=== PATIENT | female | born 1995 | race American Indian/Alaskan Native ===

== ENCOUNTER 2018-06-19 19:54 | Inpatient (IN) | payer MEDICAID, OTHER ==
[2018-06-19] MEDS ORDERED: SUBLIMAZE IV ONE (22:13)
[2018-06-19] MEDS ORDERED: STADOL IV PRN (22:14)
[2018-06-19] MEDS ORDERED: CERVIDIL VG ONE (22:14)
[2018-06-19] MEDS ORDERED: AMBIEN PO PRN (22:15)
[2018-06-19 22:22] LABS: Hemoglobin 12.2 gm/dl (10.1-14.3); Mean Corpuscular HGB Conc 34 % (30-34); Mean Corpuscular Volume 87 fl (79-97); Platelet Count 292 K/mm3 (140-440); Red Blood Count 4.12 M/mm3 (3.65-5.03); Red Cell Distribution Width 13.6 % (13.2-15.2)
[2018-06-19 22:46] LABS: Alanine Aminotransferase 11 units/L (7-56)
[2018-06-19 22:59] LABS: Uric Acid 5.8 mg/dL (3.5-7.6)
[2018-06-19] MEDS ORDERED: LACTATED RINGERS 1,000 ML IV SCH (23:00)
[2018-06-20 00:54] LABS: Bacteria,Urine 2+ /HPF (Negative); Bilirubin,Urine NEG (Negative); Blood,Urine NEG (Negative); Color,Urine Straw (Yellow); Hyaline Casts,Urine 3 /LPF; Urobilinogen,Urine < 2.0 mg/dL (<2.0)
[2018-06-20] MEDS ORDERED: AMPICILLIN/NS 2 GM/100 ML 2 GM/100 ML BAG IV ONE (06:15)
--- NOTE | 2018-06-20 07:55 | History and Physical Report ---
History of Present Illness Date of examination: 06/20/18 Date of admission: 06/19/18 19:54 Chief complaint: IOL for preeclampsia History of present illness: This is a 22 yo EDC 07/10/18 here for IOL fro [facility]. She is a transfer to [facility] at 31 weeks. She had an abnormal 1hr. Patient has a sickle cell trait. FOB unknown. Treated during this for UTI. Past History Past Medical History: no pertinent history Past Surgical History: no surgical history Family/Genetic History: none Social history: no significant social history, single. denies: smoking, alcohol abuse, prescription drug abuse - Obstetrical History Expected Date of Delivery: 07/10/18 Actual Gestation: 37 Week(s) 1 Day(s) : 1 Para: 0 Hx # Term Pregnancies: 0 Number of Pregnancies: 0 Spontaneous Abortions: 0 Induced : 0 Number of Living Children: 0 Medications and Allergies Allergies Allergy/AdvReac Type Severity Reaction Status Date / Time No Known Allergies Allergy Verified 06/05/18 16:51 Home Medications Medication Instructions Recorded Confirmed Last Taken Type Pnv No.95/Ferrous Fum/Folic AC 1 tab PO QDAY 05/12/18 06/19/18 06/01/18 20:00 History [ Formula Tablet] Active Meds: Active Medications Butorphanol Tartrate (Stadol) 2 mg IV Q2H PRN PRN Reason: Labor Pain Last Admin: 06/20/18 06:30 Dose: 2 mg Documented by: Lactated Ringer's (Lactated Ringers) 1,000 mls @ 125 mls/hr IV DIRECT ALIYA Zolpidem Tartrate (Ambien) 10 mg PO QHS PRN PRN Reason: Insomnia Last Admin: 06/20/18 01:50 Dose: 10 mg Documented by: Review of Systems All systems: negative - Vital Signs Vital signs: Vital Signs Pulse BP 98 H 196/127 06/19/18 21:20 06/19/18 21:20 Temp Pulse Resp BP Pulse Ox 97.1 F L 104 H 18 143/72 94 06/20/18 07:00 06/20/18 07:49 06/20/18 07:00 06/20/18 07:08 06/20/18 07:49 - Physical Exam Breasts: Positive: normal Cardiovascular: Regular rate, Normal S1 Lungs: Positive: Clear to auscultation, Normal air movement Abdomen: Positive: normal appearance, soft, normal bowel sounds. Negative: distention, tenderness, guarding Genitourinary (Female): Positive: normal external genitalia, normal perenium Vulva: both: normal Vagina: Positive: normal moisture Uterus: Positive: normal size, normal contour Anus/Rectum: Positive: normal perianal skin Extremities: Positive: normal Deep Tendon Reflex Grade: Normal +2 - Obstetrical FHR: category 1 Cervical Dilatation: 0 Uterine Contraction Pattern: Irregular Uterine Tone Measurement Phase: Contraction Uterine Contraction Intensity: Mild Results Result Diagrams: 06/19/18 21:33 06/19/18 21:33 Abnormal lab results 06/19/18 06/19/18 Range/Units 21:33 21:33 WBC 13.8 H (4.5-11.0) K/mm3 Creatinine 0.6 L (0.7-1.2) mg/dL Lactate Dehydrogenase 282 H (91-180) units/L All other labs normal. Assessment and Plan A/P HD#1 IOL for preeclampsia admission, labs, PIH labs cervidil for unfavorable cervix discussed iol, implications and risks
[2018-06-20] MEDS ORDERED: PITOCin/NS 30 UNIT/500ML 30 UNITS/500 ML BAG IV SCH (08:00)
[2018-06-20] MEDS ORDERED: PITOCin/NS 20 UNIT/1000ML DRIP 20 UNITS/1,000 ML BAG IV SCH ×3 (08:00→13:00)
[2018-06-20] MEDS ORDERED: XYLOCAINE 2% INFILTRATI NR (08:00)
[2018-06-20] MEDS ORDERED: PHENERGAN PO PRN (08:30)
[2018-06-20] MEDS ORDERED: ZOFRAN IV PRN (08:30)
[2018-06-20] MEDS ORDERED: BRETHINE SUB-Q PRN (08:30)
[2018-06-20] MEDS ORDERED: NARCAN 0.4 MG/1 ML IV PRN ×2 (08:30→12:20)
[2018-06-20] MEDS ORDERED: BRETHINE IVP PRN (08:30)
[2018-06-20] MEDS: LACTATED RINGERS 1,000 ML IV SCH (10:50)
[2018-06-20] MEDS ORDERED: PEPCID IV ONE ×2 (10:55→11:01)
[2018-06-20] MEDS ORDERED: BICITRA PO ONE ×2 (10:55→11:01)
[2018-06-20] MEDS ORDERED: REGLAN IV ONE ×2 (10:55→11:01)
[2018-06-20] MEDS ORDERED: ZOFRAN ONE (10:58)
[2018-06-20] MEDS ORDERED: SUBLIMAZE ONE (10:58)
[2018-06-20] MEDS ORDERED: ASTRAMORPH PF 10MG/10ML ONE (10:59)
[2018-06-20] MEDS ORDERED: LACTATED RINGERS 1,000 ML IV SCH ×2 (11:00→12:00)
[2018-06-20] MEDS ORDERED: ANCEF/STERILE WATER 2 GM/20 ML 2 GM/20 ML SYRINGE IV NR (11:00)
--- NOTE | 2018-06-20 11:03 | Event Note ---
Date: 06/20/18 Patient was noted to be 2cm and srom. patient was noted to be breech. Will proceed with LSTCS
--- NOTE | 2018-06-20 11:12 | Anesthesia Consultation ---
Anesthesia Consult and Med Hx Date of service: 06/20/18 - Airway Anesthetic Teeth Evaluation: Good ROM Head & Neck: Adequate Mental/Hyoid Distance: Adequate Mallampati Class: Class I Intubation Access Assessment: Good - Pulmonary Exam CTA: Yes - Cardiac Exam Cardiac Exam: RRR - Pre-Operative Health Status ASA Pre-Surgery Classification: ASA2 Proposed Anesthetic Plan: Spinal - Pulmonary Hx Smoking: No Hx Asthma: No Hx Respiratory Symptoms: No SOB: No COPD: No Home Oxygen Therapy: No Hx Pneumonia: No Hx Sleep Apnea: No - Cardiovascular System Hx Hypertension: No Hx Coronary Artery Disease: No Hx Heart Attack/AMI: No Hx Angina: No Hx Percutaneous Transluminal Coronary Angioplasty (PTCA): No Hx Cardia Arrhythmia: No Hx Pacemaker: No Hx Internal Defibrillator: No Hx Valvular Heart Disease: No Hx Heart Murmur: No Hx Peripheral Vascular Disease: No - Central Nervous System Hx Neuromuscular Disorder: No Hx Seizures: No CVA: No Hx Back Pain: No Hx Psychiatric Problems: No - Gastrointestinal Hx Ulcer: No Hx Gastroesophageal Reflux Disease: No - Endocrine Hx Renal Disease: No Hx End Stage Renal Disease: No Hx Cirrhosis: No Hx Liver Disease: No Hx Insulin Dependent Diabetes: No Hx Non-Insulin Dependent Diabetes: No Hx Hypothyroidism: No Hx Hyperthyroidism: No - Hematic Hx Anemia: No Hx Sickle Cell Disease: No - Other Systems Hx Alcohol Use: No Hx Substance Use: No Hx Cancer: No Hx Obesity: No
--- NOTE | 2018-06-20 11:21 | Event Note ---
Date: 06/20/18 Patient was diagnosed with breech. I spoke with patient and family which include bleeding infection, damage to pelvic and non pelvic organs., risk of blood clots, risk of chronic pain, risk of hysterectomy and . Patient signed consents and will proceed with primary csec. All questions answered
[2018-06-20] MEDS ORDERED: ANCEF/STERILE WATER 2 GM/20 ML IV ONE (11:25)
[2018-06-20] MEDS ORDERED: NACL 0.9% IR ONE (11:45)
[2018-06-20] MEDS ORDERED: WATER FOR IRRIG STERILE IR ONE (11:45)
[2018-06-20] MEDS ORDERED: MYLICON PO PRN (12:20)
[2018-06-20] MEDS ORDERED: TYLENOL PO PRN (12:20)
[2018-06-20] MEDS ORDERED: SENOKOT PO PRN (12:20)
[2018-06-20] MEDS ORDERED: LANSINOH TP PRN (12:20)
[2018-06-20] MEDS ORDERED: ANUCORT-HC PR PRN (12:20)
[2018-06-20] MEDS ORDERED: MILK OF MAGNESIA PO PRN (12:20)
[2018-06-20] MEDS ORDERED: PERCOCET 5/325 PO PRN (12:20)
[2018-06-20] MEDS ORDERED: MORPHINE IV PRN ×2 (12:20)
[2018-06-20] MEDS ORDERED: IBUPROFEN PO PRN (12:20)
[2018-06-20] MEDS ORDERED: NORCO 5/325 PO PRN (12:20)
[2018-06-20] MEDS ORDERED: TUCKS PAD TP PRN (12:20)
[2018-06-20] MEDS ORDERED: PHENERGAN PR PRN (12:20)
[2018-06-20] MEDS ORDERED: TORADOL IV PRN (12:20)
--- NOTE | 2018-06-20 12:22 | Ultrasound Report ---
ULTRASOUND OB LIMITED History: Presentation Technique: Transabdominal ultrasound with Doppler interrogation. Gestation: Single Position: Breech Heart Rate: 155 BPM
[2018-06-20] MEDS ORDERED: MAGNESIUM SULFATE 4GM/100ML 4 GM/100 ML BAG IV ONE (12:24)
--- NOTE | 2018-06-20 12:29 | Procedure Note ---
OB Delivery Note - Delivery Date of Delivery: 06/20/18 Surgeon: IZABELA SANTOS Estimated blood loss: 500cc - Section Preop diagnosis: breech Postop diagnosis: same section procedure: section Disposition: PACU Complications: none Narrative: see op note - A at 1 minute: 8 at 5 minutes: 9 Gender: Female (4 pounds 15 oz)
--- NOTE | 2018-06-20 12:37 | Operative Report ---
Operative Report Operative Report: DATE OF OPERATION: 06/30/18 PREOPERATIVE DIAGNOSES: 1. Intrauterine gestation at 37 weeks 2. Breech 3. [place] POSTOPERATIVE DIAGNOSES: 1-3 [facility] OPERATION PERFORMED: Primary low transverse section. SURGEON: Chyna Carreno MD ANESTHESIA: Epidural. COMPLICATIONS: None. ESTIMATED BLOOD LOSS: 500 mL. DRAINS: Espinal catheter to the bladder. SPECIMENS TO PATHOLOGY: Cord blood for routine testing. OPERATIVE FINDINGS: A viable male infant with Apgars of 8 and 9 and birthweight of 4 pounds 15 ounces was delivered from a cephalic presentation.The cord contained 3 vessels. There was normal anterior fundal placenta. The amniotic fluid was clear. The uterus, fallopian tubes and ovaries were normal. DESCRIPTION OF OPERATION: The patient was brought to the operating suite in stable condition with epidural anesthesia on board and an indwelling catheter in place in the bladder. The patient was placed supine on the operating room table and rolled to her left side with a wedge. The abdomen was prepped and draped in standard fashion for section. After testing with forceps to assure an adequate anesthetic level, the surgery was commenced. We had counseled the patient extensively regarding the risks of the surgery including but not limited to stroke, embolus, phlebitis, pain, infection, hemorrhage, as well as injury to the infant and the internal organs such as the bowel, bladder, blood vessels, nerves, kidneys, ureters and pelvic organs. The patient was aware of the postoperative morbidity issues and recovery timeframes. The patient was aware she can form adhesions, which can result in obstruction of loop of bowel or ureter or chronic pain. She was aware that should she have hemorrhage and require blood transfusion, there was a small chance for exposure to hepatitis or HIV disease. With the scalpel, a Pfannenstiel skin incision was made. Dissection was carried down sharply through the subcutaneous tissues and fascia in a transverse plane with the scalpel, electrocautery and curved Thompson scissors. The fascia was sharply freed up superiorly and inferiorly from the underlying rectus muscles, which were bluntly and sharply divided. The peritoneum was entered carefully in a clear space with a curved hemostat. The peritoneal incision was then extended vertically with Metzenbaum scissors. A retractor and bladder blade were placed. A bladder flap was created by incising transversely through the peritoneum and vesicouterine fold and then bluntly dissecting the bladder distally. With the scalpel, a low transverse hysterotomy was commenced. The serosa and myometrium were scored with the scalpel. The uterine cavity was actually entered bluntly with a curved hemostat. The uterine incision was then extended laterally with the well reactivator operator's fingers. An intrauterine hand was placed and the head of the was brought up out of the pelvis into the uterine incision. With fundal pressure, he was delivered without difficulty. The nasopharynx and oropharynx were suctioned. The cord was doubly clamped and transected. The was then handed off to the nursery personnel. Apgars were good at 8 and 9. Further cord blood was collected for routine testing. The placenta was manually removed. The uterine cavity was then curetted with a dry sponge and freed of the remaining membranes. The edges of the uterine incision were grasped with Avendaño clamps. With the massage and the Pitocin, the uterus began to firm up normally. The uterine incision was then closed in 2 layers of 0 Vicryl sutures. The first suture was placed to the endometrium and myometrium. The second suture was placed through the endopelvic fascia and also reincorporated the bladder flap peritoneum. Peritoneal lavage was then performed. The pelvis and gutters were irrigated and suctioned and cleared of all blood and clots and amniotic fluid. The uterine incision was reinspected to assure hemostasis. The uterus, tubes and ovaries were inspected and were normal. Once we were satisfied with the hemostasis, attention was turned to closure of the abdominal incision. The peritoneum, muscles and fascia were closed in layers using 0-Vicryl sutures. The subcutaneous tissue was closed with 3-0 plain sutures. The skin was closed with a subcuticular suture of 4-0 Vicryl followed by benzoin, Steri-Strips and a Telfa dressing. The patient was moved to the recovery room in stable condition with the Espinal catheter draining clear urine. Instruments, sponge and needle counts were reported as correct. Estimated blood loss was 500 mL. There were no complications.
[2018-06-20] MEDS ORDERED: SODIUM CHLORIDE FLUSH SYRINGE 10 ML IV NR (13:00)
[2018-06-20] MEDS: MAGNESIUM SULFATE 40GM/1000ML 40 GM/1,000 ML BAG IV SCH (13:18)
[2018-06-20] MEDS ORDERED: BENADRYL IV PRN (16:07)
[2018-06-20] MEDS ORDERED: MINERAL OIL PO PRN (22:00)
[2018-06-21 00:32] LABS: Hemoglobin 10.7 gm/dl (10.1-14.3)
[2018-06-21] MEDS: LACTATED RINGERS 1,000 ML IV SCH (06:20)
[2018-06-21] MEDS ORDERED: NORMODYNE PO ONE ×2 (08:30→17:44)
[2018-06-21] MEDS: MAGNESIUM SULFATE 40GM/1000ML 40 GM/1,000 ML BAG IV SCH (09:26)
--- NOTE | 2018-06-21 13:22 | Progress Note ---
Assessment and Plan - Patient Problems (1) induced hypertension Current Visit: Yes Status: Acute Plan to address problem: patient doing well Subjective - Subjective Date of service: 06/21/18 Interval history: Patient is completing her magnesium therapy. She is without complaints. Remains normotensive. Patient reports: appetite normal, pain well controlled : doing well Objective - Vital Signs Latest vital signs: Vital Signs Temp Pulse Resp BP BP Pulse Ox 06/21/18 13:18 98 H 96 06/21/18 13:13 87 95 06/21/18 13:09 87 94 06/21/18 13:08 87 95 06/21/18 13:03 103 H 96 06/21/18 12:59 104 H 93 06/21/18 12:58 101 H 96 06/21/18 12:57 96 H 117/67 06/21/18 12:53 100 H 92 06/21/18 12:48 85 95 06/21/18 12:43 86 96 06/21/18 12:38 85 96 06/21/18 12:33 82 96 06/21/18 12:28 83 96 06/21/18 12:27 81 113/66 93 06/21/18 12:23 86 95 06/21/18 12:18 83 96 06/21/18 12:13 86 96 06/21/18 12:08 84 96 06/21/18 12:03 87 96 06/21/18 11:58 84 96 06/21/18 11:57 84 112/65 93 06/21/18 11:53 83 95 06/21/18 11:48 88 96 06/21/18 11:43 87 95 06/21/18 11:38 98 H 96 06/21/18 11:34 83 94 06/21/18 11:33 84 95 06/21/18 11:28 85 95 06/21/18 11:27 90 113/67 92 06/21/18 11:23 85 95 06/21/18 11:21 87 94 06/21/18 11:18 85 95 06/21/18 11:14 89 94 06/21/18 11:13 87 95 06/21/18 11:08 87 95 06/21/18 11:03 90 96 06/21/18 10:58 95 H 96 06/21/18 10:57 90 118/74 93 06/21/18 10:53 101 H 96 06/21/18 10:48 95 H 96 06/21/18 10:44 85 94 06/21/18 10:43 84 94 06/21/18 10:39 85 94 06/21/18 10:38 83 95 06/21/18 10:33 85 95 06/21/18 10:28 84 95 06/21/18 10:27 85 116/69 93 06/21/18 10:23 82 95 06/21/18 10:18 85 95 06/21/18 10:14 86 94 06/21/18 10:13 88 95 06/21/18 10:09 93 H 94 06/21/18 10:08 95 H 96 06/21/18 10:03 93 H 96 06/21/18 09:58 94 H 97 06/21/18 09:57 93 H 131/79 06/21/18 09:53 98 H 97 06/21/18 09:48 92 H 96 06/21/18 09:43 95 H 96 06/21/18 09:38 92 H 96 06/21/18 09:33 92 H 97 06/21/18 09:28 99 H 96 06/21/18 09:27 85 143/90 06/21/18 09:25 95 H 94 06/21/18 09:23 95 H 95 06/21/18 09:18 99 H 95 06/21/18 09:13 83 97 06/21/18 09:08 84 98 06/21/18 09:03 75 95 06/21/18 08:58 85 96 06/21/18 08:57 85 132/88 93 06/21/18 08:53 95 H 96 06/21/18 08:48 96 H 95 06/21/18 08:43 81 95 06/21/18 08:38 97 H 95 06/21/18 08:34 78 94 06/21/18 08:33 81 95 06/21/18 08:28 95 H 95 06/21/18 08:27 90 128/90 93 06/21/18 08:23 95 H 96 06/21/18 08:22 91 H 94 06/21/18 08:18 92 H 96 06/21/18 08:17 95 H 141/95 06/21/18 08:16 95 H 94 06/21/18 08:13 90 95 06/21/18 08:09 86 94 06/21/18 08:08 87 95 06/21/18 08:03 93 H 95 06/21/18 08:02 84 94 06/21/18 07:58 93 H 95 06/21/18 07:57 102 H 141/95 06/21/18 07:55 91 H 94 06/21/18 07:53 83 95 06/21/18 07:49 88 94 06/21/18 07:48 86 95 06/21/18 07:43 91 H 94 06/21/18 07:42 92 H 94 06/21/18 07:38 92 H 95 06/21/18 07:33 107 H 95 06/21/18 07:28 95 H 96 06/21/18 07:27 89 167/103 06/21/18 07:26 87 93 06/21/18 07:23 78 96 06/21/18 07:18 81 97 06/21/18 07:13 83 96 06/21/18 07:08 84 97 06/21/18 07:03 94 H 97 06/21/18 07:01 86 94 06/21/18 06:58 80 96 06/21/18 06:57 91 H 167/91 06/21/18 06:53 87 96 06/21/18 06:48 91 H 97 06/21/18 06:43 89 97 06/21/18 06:38 95 H 97 06/21/18 06:33 89 96 06/21/18 06:28 107 H 97 06/21/18 06:27 91 H 163/93 94 06/21/18 06:23 95 H 96 06/21/18 06:18 99 H 97 06/21/18 06:13 99 H 99 06/21/18 06:08 90 97 06/21/18 06:03 90 97 06/21/18 05:58 90 96 06/21/18 05:57 86 146/91 93 06/21/18 05:53 83 95 06/21/18 05:48 90 96 06/21/18 05:43 95 H 96 06/21/18 05:39 96 H 94 06/21/18 05:38 99 H 94 06/21/18 05:33 85 97 06/21/18 05:28 94 H 96 06/21/18 05:27 98 H 158/88 92 06/21/18 05:23 83 96 06/21/18 05:18 76 96 06/21/18 05:13 81 97 06/21/18 05:08 79 96 06/21/18 05:03 83 96 06/21/18 04:58 107 H 97 06/21/18 04:57 91 H 164/86 94 06/21/18 04:53 85 96 06/21/18 04:48 86 96 06/21/18 04:43 94 H 97 06/21/18 04:38 98 H 97 06/21/18 04:33 101 H 97 06/21/18 04:30 97.8 F 18 06/21/18 04:28 99 H 97 06/21/18 04:27 98.0 F 88 18 163/92 94 06/21/18 04:23 87 97 06/21/18 04:18 100 H 97 06/21/18 04:13 86 96 06/21/18 04:12 86 94 06/21/18 04:08 85 97 06/21/18 04:03 97 H 97 06/21/18 03:58 90 97 06/21/18 03:57 96 H 154/105 91 06/21/18 03:53 87 96 06/21/18 03:48 99 H 96 06/21/18 03:43 83 96 06/21/18 03:38 89 97 06/21/18 03:36 87 94 06/21/18 03:33 84 96 06/21/18 03:28 91 H 96 06/21/18 03:27 96 H 139/80 94 06/21/18 03:23 89 96 06/21/18 03:18 91 H 96 06/21/18 03:13 83 96 06/21/18 03:08 89 96 06/21/18 03:03 92 H 97 06/21/18 02:58 93 H 96 06/21/18 02:57 90 143/85 06/21/18 02:53 95 H 97 06/21/18 02:48 101 H 97 06/21/18 02:43 89 97 06/21/18 02:38 86 96 06/21/18 02:33 95 H 95 06/21/18 02:32 90 94 06/21/18 02:28 111 H 95 06/21/18 02:27 97.8 F 102 H 18 134/77 97 06/21/18 02:23 96 H 97 06/21/18 02:18 93 H 96 06/21/18 02:13 100 H 96 06/21/18 02:08 98 H 97 06/21/18 02:03 95 H 96 06/21/18 01:58 94 H 97 06/21/18 01:57 93 H 139/79 06/21/18 01:53 93 H 96 06/21/18 01:48 89 96 06/21/18 01:43 87 96 06/21/18 01:38 92 H 95 06/21/18 01:35 100 H 94 06/21/18 01:33 105 H 95 06/21/18 01:28 102 H 96 06/21/18 01:27 103 H 156/90 89 06/21/18 01:23 108 H 96 06/21/18 01:18 106 H 95 06/21/18 01:13 107 H 96 06/21/18 01:08 99 H 96 06/21/18 01:03 95 H 96 06/21/18 00:58 90 96 06/21/18 00:57 94 H 148/90 94 06/21/18 00:53 93 H 96 06/21/18 00:48 94 H 96 06/21/18 00:43 84 97 06/21/18 00:38 90 97 06/21/18 00:33 91 H 100 06/21/18 00:27 92 H 153/87 06/21/18 00:19 87 96 06/21/18 00:14 87 96 06/21/18 00:09 91 H 97 06/21/18 00:04 84 97 06/20/18 23:59 99 H 96 06/20/18 23:57 98.0 F 96 H 16 153/91 06/20/18 23:54 101 H 96 06/20/18 23:49 103 H 95 06/20/18 23:48 102 H 94 06/20/18 23:44 89 95 06/20/18 23:39 100 H 95 06/20/18 23:34 92 H 95 06/20/18 23:29 95 H 95 06/20/18 23:27 99 H 142/86 91 06/20/18 23:24 98 H 96 06/20/18 23:19 107 H 96 06/20/18 23:14 102 H 96 06/20/18 23:09 104 H 95 06/20/18 23:04 103 H 96 06/20/18 22:59 112 H 96 06/20/18 22:57 107 H 177/90 91 06/20/18 22:54 98 H 96 06/20/18 22:49 94 H 96 06/20/18 22:44 96 H 96 06/20/18 22:39 96 H 96 06/20/18 22:28 105 H 97 06/20/18 22:27 98.1 F 103 H 18 152/90 96 06/20/18 22:23 89 95 06/20/18 22:18 87 95 06/20/18 22:17 88 94 06/20/18 22:13 90 96 06/20/18 22:09 91 H 94 06/20/18 22:08 95 H 95 06/20/18 22:04 96 H 94 06/20/18 22:03 99 H 95 06/20/18 21:57 109 H 128/72 92 06/20/18 21:52 93 H 96 06/20/18 21:47 92 H 96 06/20/18 21:42 98 H 95 06/20/18 21:37 99 H 96 06/20/18 21:32 95 H 96 06/20/18 21:27 106 H 153/92 93 06/20/18 21:22 90 95 06/20/18 21:17 106 H 96 06/20/18 21:12 92 H 95 06/20/18 21:08 101 H 94 06/20/18 21:07 95 H 95 06/20/18 21:02 107 H 95 06/20/18 20:57 99 H 144/92 96 06/20/18 20:52 97 H 96 06/20/18 20:47 97 H 96 06/20/18 20:42 96 H 95 06/20/18 20:37 94 H 95 06/20/18 20:32 99 H 96 06/20/18 20:27 100 H 141/93 94 06/20/18 20:22 98 H 96 06/20/18 20:17 93 H 96 06/20/18 20:12 104 H 96 06/20/18 20:07 94 H 96 06/20/18 20:02 107 H 97 06/20/18 19:57 97.6 F 88 18 135/87 96 06/20/18 19:56 89 94 06/20/18 19:52 103 H 95 06/20/18 19:47 82 93 06/20/18 19:42 83 94 06/20/18 19:41 84 94 06/20/18 19:37 88 94 06/20/18 19:35 86 94 06/20/18 19:32 86 93 06/20/18 19:30 81 94 06/20/18 19:27 85 144/70 96 06/20/18 19:25 91 H 94 06/20/18 19:22 95 H 96 06/20/18 19:18 94 H 94 06/20/18 19:17 91 H 96 06/20/18 19:12 97 H 96 06/20/18 19:10 101 H 94 06/20/18 19:07 97 H 95 06/20/18 19:04 91 H 94 06/20/18 19:02 92 H 95 06/20/18 18:57 85 148/75 93 06/20/18 18:56 87 94 06/20/18 18:52 97 H 96 06/20/18 18:50 99 H 94 06/20/18 18:47 94 H 97 06/20/18 18:38 95 H 98 06/20/18 18:33 90 96 06/20/18 18:28 88 96 06/20/18 18:27 86 143/88 06/20/18 18:25 82 94 06/20/18 18:23 87 97 06/20/18 18:18 94 H 96 06/20/18 18:15 99 H 94 06/20/18 18:13 101 H 96 06/20/18 18:10 87 20 147/91 95 06/20/18 18:09 93 H 94 06/20/18 18:08 95 H 96 06/20/18 18:03 84 95 06/20/18 17:58 81 95 06/20/18 17:57 93 H 147/91 94 06/20/18 17:53 82 95 06/20/18 17:50 82 94 06/20/18 17:48 82 94 06/20/18 17:44 104 H 94 06/20/18 17:43 107 H 93 06/20/18 17:38 83 93 06/20/18 17:33 84 96 06/20/18 17:30 86 94 06/20/18 17:28 101 H 96 06/20/18 17:27 81 137/87 06/20/18 17:23 96 H 96 06/20/18 17:18 82 94 06/20/18 17:17 89 92 06/20/18 17:13 97 H 97 06/20/18 17:11 87 94 06/20/18 17:08 85 97 06/20/18 17:05 79 94 06/20/18 17:03 81 96 06/20/18 17:00 93 H 137/81 97 06/20/18 16:59 83 94 06/20/18 16:58 88 96 06/20/18 16:57 90 137/81 06/20/18 16:53 110 H 96 06/20/18 16:48 85 95 06/20/18 16:46 83 94 06/20/18 16:43 83 96 06/20/18 16:40 83 94 06/20/18 16:38 85 96 06/20/18 16:34 86 94 06/20/18 16:33 92 H 96 06/20/18 16:28 89 97 06/20/18 16:27 85 151/82 94 06/20/18 16:23 89 96 06/20/18 16:20 80 93 06/20/18 16:18 91 H 95 06/20/18 16:13 98 H 95 06/20/18 16:12 86 94 06/20/18 16:08 107 H 97 06/20/18 16:03 82 91 06/20/18 16:00 96.9 F L 97 H 20 151/69 96 06/20/18 15:58 96 H 96 06/20/18 15:57 97 H 151/69 92 06/20/18 15:53 90 93 06/20/18 15:51 79 94 06/20/18 15:48 90 92 06/20/18 15:45 81 94 06/20/18 15:43 80 91 06/20/18 15:40 78 94 06/20/18 15:38 91 H 96 06/20/18 15:33 83 96 06/20/18 15:28 75 92 06/20/18 15:27 76 136/74 06/20/18 15:26 86 93 06/20/18 15:23 79 94 06/20/18 15:21 83 93 06/20/18 15:18 83 94 06/20/18 15:14 82 94 06/20/18 15:13 80 96 06/20/18 15:08 84 96 06/20/18 15:06 87 94 06/20/18 15:03 80 95 06/20/18 15:00 100 H 16 136/65 97 06/20/18 14:58 74 96 06/20/18 14:57 84 136/65 93 06/20/18 14:53 93 H 97 06/20/18 14:50 76 93 06/20/18 14:48 85 97 06/20/18 14:43 91 H 97 06/20/18 14:42 82 91 06/20/18 14:38 90 96 06/20/18 14:33 94 H 96 06/20/18 14:32 81 92 06/20/18 14:28 100 H 97 06/20/18 14:27 75 155/82 06/20/18 14:23 77 94 06/20/18 14:20 81 94 06/20/18 14:18 91 H 97 06/20/18 14:13 85 95 06/20/18 14:12 85 93 06/20/18 14:08 80 97 06/20/18 14:07 90 94 06/20/18 14:03 80 96 06/20/18 14:00 72 92 06/20/18 13:30 97.6 F 72 23 137/77 97 Intake and Output 06/20/18 06/21/18 06/21/18 22:59 06:59 14:59 Intake Total 2080 1120 1000 Output Total 2300 3300 1050 Balance -220 -2180 -50 Intake: IV 1000 1000 Lactated Ringers 1,000 ml 1000 @ 125 mls/hr IV DIRECT ALIYA Rx#:[id number] MAGNESIUM SULFATE 40GM/ 1000 1000ML 40 gm In 1,000 ml @ 2 GM/HR 50 mls/hr IV DIRECT ALIYA Rx#:[id number] Oral 1080 1120 Output: Urine 2300 3300 1050 Indwelling Catheter 2300 3300 1050 Other: Total, Intake Amount 240 360 Total, Output Amount 1500 1200 450 - Exam Abdomen: Present: normal appearance, soft - Labs Labs: Abnormal lab results 06/20/18 06/21/18 06/21/18 Range/Units 18:40 00:26 05:42 Magnesium 4.50 H 4.70 H 5.00 H (1.7-2.3) mg/dL
[2018-06-21] MEDS: NORMODYNE PO SCH (22:18)
--- NOTE | 2018-06-22 08:49 | Progress Note ---
Assessment and Plan - Patient Problems (1) induced hypertension Current Visit: Yes Status: Acute Plan to address problem: patient doing well will consider discharge if blood pressures remain normal Subjective - Subjective Date of service: 06/22/18 Interval history: Patient having some minor uterine cramping. Has had response to labetalol. No significant complaints Patient reports: appetite normal, voiding normally, pain well controlled : in NICU Objective - Vital Signs Latest vital signs: Vital Signs Temp Pulse Resp BP BP Pulse Ox 06/22/18 00:21 99.9 F H 108 H 20 127/78 91 06/21/18 22:18 99 H 155/99 06/21/18 20:22 98.9 F 103 H 20 155/99 95 06/21/18 18:45 82 152/110 06/21/18 15:56 98.4 F 82 18 152/110 06/21/18 14:33 88 97 06/21/18 14:28 95 H 97 06/21/18 14:27 86 139/94 93 06/21/18 14:23 89 97 06/21/18 14:18 94 H 97 06/21/18 14:13 88 97 06/21/18 14:08 88 97 06/21/18 14:03 92 H 96 06/21/18 13:59 85 142/95 06/21/18 13:58 85 97 06/21/18 13:57 86 148/99 93 06/21/18 13:53 86 97 06/21/18 13:48 90 96 06/21/18 13:43 92 H 98 06/21/18 13:38 88 97 06/21/18 13:33 90 97 06/21/18 13:28 94 H 97 06/21/18 13:27 87 134/86 06/21/18 13:23 92 H 97 06/21/18 13:18 98 H 96 06/21/18 13:13 87 95 06/21/18 13:09 87 94 06/21/18 13:08 87 95 06/21/18 13:03 103 H 96 06/21/18 12:59 104 H 93 06/21/18 12:58 101 H 96 06/21/18 12:57 96 H 117/67 06/21/18 12:53 100 H 92 06/21/18 12:48 85 95 06/21/18 12:43 86 96 01/09/19 12:38 85 96 06/21/18 12:33 82 96 06/21/18 12:28 83 96 06/21/18 12:27 81 113/66 93 06/21/18 12:23 86 95 06/21/18 12:18 83 96 06/21/18 12:13 86 96 06/21/18 12:08 84 96 06/21/18 12:03 87 96 06/21/18 12:00 97.7 F 17 06/21/18 11:58 84 96 06/21/18 11:57 84 112/65 93 06/21/18 11:53 83 95 06/21/18 11:48 88 96 06/21/18 11:43 87 95 06/21/18 11:38 98 H 96 06/21/18 11:34 83 94 06/21/18 11:33 84 95 06/21/18 11:28 85 95 06/21/18 11:27 90 113/67 92 06/21/18 11:23 85 95 06/21/18 11:21 87 94 06/21/18 11:18 85 95 06/21/18 11:14 89 94 06/21/18 11:13 87 95 06/21/18 11:08 87 95 06/21/18 11:03 90 96 06/21/18 10:58 95 H 96 06/21/18 10:57 90 118/74 93 06/21/18 10:53 101 H 96 06/21/18 10:48 95 H 96 06/21/18 10:44 85 94 06/21/18 10:43 84 94 06/21/18 10:39 85 94 06/21/18 10:38 83 95 06/21/18 10:33 85 95 06/21/18 10:28 84 95 06/21/18 10:27 85 116/69 93 06/21/18 10:23 82 95 06/21/18 10:18 85 95 06/21/18 10:14 86 94 06/21/18 10:13 88 95 06/21/18 10:09 93 H 94 06/21/18 10:08 95 H 96 06/21/18 10:03 93 H 96 06/21/18 09:58 94 H 97 06/21/18 09:57 93 H 131/79 06/21/18 09:53 98 H 97 06/21/18 09:48 92 H 96 06/21/18 09:43 95 H 96 06/21/18 09:38 92 H 96 06/21/18 09:33 92 H 97 06/21/18 09:28 99 H 96 06/21/18 09:27 85 143/90 06/21/18 09:25 95 H 94 06/21/18 09:23 95 H 95 06/21/18 09:18 99 H 95 06/21/18 09:13 83 97 06/21/18 09:08 84 98 06/21/18 09:03 75 95 06/21/18 08:58 85 96 06/21/18 08:57 85 132/88 93 06/21/18 08:53 95 H 96 06/21/18 08:48 96 H 95 Intake and Output 06/21/18 06/22/18 06/22/18 22:59 06:59 14:59 Intake Total 120 240 Output Total 300 Balance -180 240 Intake: Oral 120 240 Output: Urine 300 Void 300 Other: Total, Intake Amount 120 120 Total, Output Amount 300 # Voids Void 1 - Exam Incision: Present: normal, dry
[2018-06-22] MEDS: NORMODYNE PO SCH ×2 (10:00→22:12)
[2018-06-22] MEDS: PROCARDIA XL PO SCH (18:29)
--- NOTE | 2018-06-23 08:39 | Progress Note ---
Assessment and Plan A/P POD 3 s/p csec labile BP s/p PIH on labetolol and procardia which is manging BP will d/c home with f/u in 1 week for BP check Subjective - Subjective Date of service: 06/23/18 Principal diagnosis: s/p csec Interval history: This is a 22 yo EDC 07/10/18 here for IOL inga [place]. She is a transfer to [place] at 31 weeks. She had an abnormal 1hr. Patient has a sickle cell trait. FOB unknown. Treated during this for UTI. Patient reports: appetite normal, voiding normally, pain well controlled, flatus, ambulating normally [place]: doing well Objective - Vital Signs Latest vital signs: Vital Signs Temp Pulse Resp BP BP Pulse Ox 06/23/18 07:33 98.7 F 90 18 129/78 96 06/23/18 04:49 98.6 F 95 H 18 124/82 93 06/23/18 00:43 99.0 F 99 H 18 117/70 96 06/22/18 22:12 88 140/90 06/22/18 21:48 98.7 F 89 18 112/77 96 06/22/18 17:48 146/95 06/22/18 16:18 97.6 F 94 H 18 135/83 97 06/22/18 14:32 91 H 142/96 06/22/18 12:30 151/96 06/22/18 08:49 98.9 F 92 H 16 138/97 95 Intake and Output 06/22/18 06/23/18 06/23/18 23:59 07:59 15:59 Intake Total 1200 360 Balance 1200 360 Intake: Oral 480 360 Intake, Free Water 720 Other: Total, Intake Amount 480 360 # Voids Void 2 3 - Exam Breasts: Present: normal Cardiovascular: Present: Regular rate, Normal S1 Lungs: Present: Clear to auscultation, Normal air movement Abdomen: Present: normal appearance, soft, normal bowel sounds. Absent: distention, tenderness, guarding Vulva: both: normal Uterus: Present: normal, firm, fundal height below umbilicus. Absent: bogginess, tenderness Extremities: Present: normal Deep Tendon Reflex Grade: Normal +2 Incision: Present: normal, dry, intact
--- NOTE | 2018-06-23 08:43 | Discharge Summary ---
Providers - Providers Date of Admission: 06/19/18 19:54 Date of discharge: 06/23/18 Attending physician: IZABELA SANTOS MD Primary care physician: IZABELA SANTOS MD Hospitalization Reason for admission: induction of labor Delivery: Procedure: section Episiotomy: none Laceration: none Incision: normal, dry, intact Other procedures: none complications: none Discharge diagnosis: IUP at term delivered baby: female Hospital course: Patient had a csec for breech. patient endured labile BP and was given labetolol and procardia to manage BP. f/u in 1 weeks. Discharged home on pod 3 Condition at discharge: Good Disposition: [id number] TO HOME OR SELFCARE Plan - Discharge Medications Prescriptions: Ferrous Sulfate 325 mg PO BID #60 tablet. Ibuprofen [Motrin] 600 mg PO Q8H PRN #30 tablet PRN Reason: Pain Labetalol [Normodyne TAB] 400 mg PO BID #60 tablet Labetalol [Normodyne TAB] 400 mg PO BID #60 tablet NIFEdipine XL [Procardia Xl] 60 mg PO QDAY #60 tablet oxyCODONE /ACETAMINOPHEN [Percocet 5/325] 1 tab PO Q6HR PRN #30 tablet PRN Reason: Pain - Provider Discharge Summary Activity: routine, no sex for 6 weeks, no strenuous exercise Diet: routine Instructions: routine Additional instructions: [] Smoking cessation referral if applicable(refer to patient education folder for contact #) [] Refer to [facility]'s [facility] Booklet Call your doctor immediately for: * Fever > 100.5 * Heavy vaginal bleeding ( >1 pad per hour) * Severe persistent headache * Shortness of breath * Reddened, hot, painful area to leg or breast * Drainage or odor from incision. * Keep incision clean and dry at all times and follow doctor's instructions regarding bathing/showering - Follow up plan Follow up: IZABELA SANTOS MD [Primary Care Provider] - 7 Days
[2018-06-23] MEDS: NORMODYNE PO SCH (11:39)
[2018-06-23] MEDS: PROCARDIA XL PO SCH (11:39)
[2018-06-23 13:30] VITALS: BP 114/71
== END 2018-06-23 13:35 | disposition home or self-care (01) | DRG 788 ==
LOC: LD 19:54 → OB 06-21 15:03
PROVIDERS: ADMIT Obstetrics & Gynecology; ATTEND Obstetrics & Gynecology
PROC: 10D00Z1 Extraction of Products of Conception, Low, Open Approach (ICD-10-PCS; principal; 2018-06-20)
DX: O32.1XX0 Maternal care for breech presentation, not applicable or unspecified (principal); O99.02 Anemia complicating childbirth; D57.3 Sickle-cell trait; O14.94 Unspecified pre-eclampsia, complicating childbirth; O69.1XX0 Labor and delivery complicated by cord around neck, with compression, not applicable or unspecified; Z3A.37 37 weeks gestation of pregnancy; Z37.0 Single live birth
CPT/HCPCS: 36415; 59200; 76815; 81001; 82565; 82962; 83615; 83735; 84450; 84460; 84550; 85014; 85018; 85027; 86592; 86850; 86900; 86901; 88307; G0378; C9250; J0290; J0595; J0690; J1200; J1885; J2270; J2274; J2405; J2590; J2765; J3010; J3105; J3475; J7120